=== PATIENT | male | born 1990 | race Caucasian/White ===

== ENCOUNTER 2021-09-15 10:48 | Emergency (ER) | payer SELFPAY ==
[2021-09-15 11:39] VITALS: BP 143/88; PULSE 56; RESP 16; TEMP 36.8; O2SAT 98; BMI 26.4
[2021-09-15 11:46] VITALS: O2SAT 98
--- NOTE | 2021-09-15 11:56 | ED_ITS ---
HPI - COVID General: Chief Complaint: COVID symptoms Stated Complaint: Covid Symptoms Time Seen by Provider: 09/15/21 10:49 Source: patient Mode of arrival: ambulatory Limitations: no limitations Triage information: Has fever, cough or shortness of breath . No known COVID + exposure last 14 days History of Present Illness: HPI Narrative: Patient is a 31-year-old male who presents to ED today with complaints of a headache, nasal congestion, sinus pain/pressure, cough, and fatigue. Patient states his work is requiring him to get tested for COVID. He did have a rapid COVID a week ago that was negative through [employer]. Patient has not been running fevers. No known COVID exposure. He is vaccinated for COVID. MD complaint: has COVID symptoms Prior covid testing: yes, results known (negative rapid approximately a week ago) COVID 19 common symptoms: positive cough, productive cough, fatigue, headache(s) and nasal congestion; negative fever(s), chills, dyspnea, throat pain, nausea, vomiting or diarrhea COVID 19 other sytmptoms: negative chest pain COVID Results: No Data to Display Review of Systems Const: Reports: fatigue; Denies: fever(s) or chills Eyes: Denies: change in vision, blurry vision or photophobia ENMT: Reports: nasal congestion and sinus pain; Denies: throat pain, odynophagia, nasal discharge or post nasal drip Card: Denies: chest pain Resp: Reports: productive cough and chest congestion; Denies: dyspnea, wheezing or hemoptysis GI: Denies: abdominal pain, nausea, vomiting or diarrhea Musc: Denies: neck pain, back pain, extremity pain or joint pain Skin/Breast: Denies: rash Neuro: Reports: headache(s) Physical Exam Const: COMMON NORMALS: no acute distress, average body habitus, patient oriented x3, no limitations, healthy appearing, alert and well nourished GENERAL APPEARANCE: cooperative HENMT: COMMON NORMALS: normocephalic and atraumatic HEAD & SCALP: normal to inspection, normocephalic and atraumatic FACE & SINUS: normal facial exam Resp: COMMON NORMALS: normal respiratory effort and clear to auscultation bilaterally AUSCULTATION: clear to auscultation bilaterally Cardio: COMMON NORMALS: regular rate and regular rhythm RATE: regular rate RHYTHM: regular rhythm Neuro: COMMON NORMALS: patient oriented x3 SENSORIUM/ORIENTATION: Yes alert Course Vital Signs: Vital signs: Vital Signs Temperature 98.3 F 09/15/21 11:39 Pulse Rate 56 L 09/15/21 11:39 Respiratory Rate 16 09/15/21 11:39 Blood Pressure 143/88 09/15/21 11:39 Pulse Oximetry 98 09/15/21 11:39 MDM - COVID MDM Narrative: Medical decision making narrative: Patient appears in no acute distress. His vital signs are perfect. Coronavirus PCR obtained. Patient is stable for discharge. 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
[2021-09-15 14:04] LABS: Adenovirus Not Detected (NOT DETECT); Chlamydia Pneumoniae Not Detected (NOT DETECT); Coronavirus 229E,HKU1,NL63,OC4 Not Detected (NOT DETECT); Human Metapneumovirus Not Detected (NOT DETECT); Human Rhinovirus/Enterovirus Detected (NOT DETECT); Influenza A Not Detected (NOT DETECT); Influenza A H1 Not Detected (NOT DETECT); Influenza A H1-2009 Not Detected (NOT DETECT); Influenza A H3 Not Detected (NOT DETECT); Influenza B Not Detected (NOT DETECT); Mycoplasma Pneumoniae Not Detected (NOT DETECT); Parainfluenza Virus Type 1 Not Detected (NOT DETECT); Parainfluenza Virus Type 2 Not Detected (NOT DETECT); Parainfluenza Virus Type 3 Not Detected (NOT DETECT); Parainfluenza Virus Type 4 Not Detected (NOT DETECT); Respiratory Syncytial Virus A Not Detected (NOT DETECT); Respiratory Syncytial Virus B Not Detected (NOT DETECT); SARS-COV-2 Not Detected (NOT DETECT)
[2021-09-15 14:05] LABS: Human Metapneumovirus Not Detected (NOT DETECT); Human Rhinovirus/Enterovirus Detected (NOT DETECT); Results from Genmark
== END 2021-09-15 12:10 | disposition home or self-care (01) ==
PROVIDERS: Emergency Provider Physician Assistant
DX: J06.9 Acute upper respiratory infection, unspecified (principal); Z20.822 Contact with and (suspected) exposure to COVID-19
CPT/HCPCS: 87635; 87801; 99282

== ENCOUNTER 2021-10-01 10:34 | Emergency (ER) | payer SELFPAY ==
--- NOTE | 2021-10-01 10:46 | ED_ITS ---
HPI - Dental/Oral General: Chief complaint: Dental/Oral Stated complaint: DENTAL/ORAL Time Seen by Provider: 10/01/21 10:40 Source: patient Mode of arrival: ambulatory Limitations: no limitations History of Present Illness: Patient is a 31-year-old male who presents to ED today with complaint of dental pain. He states pain is been present over the past 2 to 3 days but is progressively worsening. He states the tooth is throbbing and kept him up from sleep last night. He has not noticed any facial swelling. He states pain is located to his left lower third molar and states he is aware that the tooth is cracked. He is not try to follow-up with a dentist. MD Complaint: tooth pain Location: Tooth # (17) Teeth map: 1. Onset (ago): day(s) Duration: constant Severity: severe Relieving factors: nothing Exacerbating factors: chewing and cold Context: history of dental caries Associated symptoms: Reports no associated symptoms; Denies ear or mastoid pain, fever(s) or odynophagia Treatment prior to arrival: oral analgesic Review of Systems Const: Denies: fever(s), chills, body aches, fatigue or malaise ENMT: Reports: dental pain; Denies: throat pain, odynophagia, swelling of lips/tongue, oral sores, ear or mastoid pain, ear discharge, nasal discharge, nasal congestion, post nasal drip or sinus pain Card: Denies: chest pain Resp: Denies: dyspnea GI: Denies: nausea or vomiting Musc: Denies: neck pain Neuro: Denies: headache(s) Physical Exam Const: COMMON NORMALS: no acute distress, average body habitus, patient oriented x3, no limitations, healthy appearing and alert HENMT: COMMON NORMALS: normocephalic and atraumatic HEAD & SCALP: normal to inspection, normocephalic and atraumatic FACE & SINUS: normal facial exam MOUTH: Normal oral and palatal mucosa present, lip normal, tongue normal and other (floor of mouth is soft and non-elevated; no trismus) TEETH & GINGIVA IMAGES: 1. cracked molar; pain; no obvious dental abscess at this time THROAT: posterior oropharynx normal, tonsils normal and uvula midline Neck/C-Spine: GENERAL: No anterior neck swelling, No lymphadenopathy and No submandibular swelling Neuro: COMMON NORMALS: patient oriented x3 SENSORIUM/ORIENTATION: Yes alert Course Vital Signs: Vital signs: Vital Signs Temperature 97.4 F L 10/01/21 10:54 Pulse Rate 64 10/01/21 10:54 Respiratory Rate 16 10/01/21 10:54 Blood Pressure 120/76 10/01/21 10:54 Pulse Oximetry 99 10/01/21 10:54 MDM - Dental/Oral Medical Decision Making Given dental resources and recommend follow up with dentist as soon as possible. Return to ED precautions verbally given to patient. 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
[2021-10-01 10:54] VITALS: BP 120/76; PULSE 64; RESP 16; TEMP 36.3; O2SAT 99
[2021-10-01 11:01] VITALS: BMI 26.4
== END 2021-10-01 11:11 | disposition home or self-care (01) ==
PROVIDERS: Emergency Provider Physician Assistant
DX: S02.5XXA Fracture of tooth (traumatic), initial encounter for closed fracture (principal); X58.XXXA Exposure to other specified factors, initial encounter
CPT/HCPCS: 99281